=== PATIENT | male | born 1995 | race Caucasian/White ===

== ENCOUNTER 2020-11-15 16:51 | Emergency (ER) | payer BC, SELFPAY ==
[2020-11-15 17:01] VITALS: BP 134/77; PULSE 77; RESP 18; TEMP 36.8; O2SAT 98
[2020-11-15 17:08] VITALS: BP 134/77; PULSE 77; RESP 16; TEMP 36.8; O2SAT 98
--- NOTE | 2020-11-15 17:23 | HMH.EDUTC ---
[facility] – [place] Disposition Clinical Impression: Upper respiratory infection Qualifiers: URI type: unspecified URI Qualified Code(s): J06.9 - Acute upper respiratory infection, unspecified Disposition: Home, Self-Care Condition on Discharge: Good Instructions: Cough, DI for Cough -- Adult, DI for Sinusitis Additional Instructions: ? Start antibiotic today. Be sure to complete entire prescription even if feeling better Over the counter Cough medication like Robitussin or Delsym may help with cough ? Monitor temp. Tylenol every 4 hours as needed and / or ibuprofen every 6 hours as needed ( As long as your primary care physician has told you that it ok to take both. For fever/aches/pains ER if no less than 101 despite Tylenol or Motrin ? Humidifier/vaporizer or hot steamy shower *Warm salt water gargles may help to soothe the throat *Throat Lozenges *Warm fluids like tea with honey may help to soothe the throat *Sleep elevated *Humidifier/Vaporizer Your throat swab was sent for culture. Those results are typically sent to your primary care. Be sure to follow up in 2-3 days with your family doctor/primary care physician if no improvement so they can review those result and treat if necessary. If you don?t have a primary care doctor, I recommend you get one but in the mean time, you will have to return to a walk in clinic Follow up IMMEDIATELY for new or worsening symptoms or no Noticeable improvement over the next 48-72 hours. 911 for difficulty breathing or swallowing Follow up IMMEDIATELY for new or worsening of symptoms OR no noticeable improvement over the next 48-72 hours. 911 immediately for any life threatening symptoms such as chest pain or difficulty breathing Prescriptions: Fluticasone Propionate [Flonase 50mcg nasal spray 16gm] 1 spr NS DAILY #1 bottle Transmission Status: Pending to [email or web address] Azithromycin [Z-José 250mg Tab] 250 mg PO DIRECTED #6 tab Transmission Status: Pending to [email or web address] Referrals: Provider,Referral, [Primary Care Provider] - As needed Time of Disposition: 17:39 Medical Decision Making - Choco Inquiry Pt receiving controlled substance: No Choco was queried for this patient: No Vital Signs: 11/15/20 17:01 11/15/20 17:08 Temperature 98.3 F 98.3 F Temperature Source Oral Oral Pulse Rate [Left Radial] 77 77 Respiratory Rate 18 16 Blood Pressure [Left Arm] 134/77 134/77 Blood Pressure Mean [Left Arm] 96 96 Blood Pressure Source [Left Arm] Automatic Cuff Automatic Cuff Blood Pressure Position [Left Arm] Sitting Sitting 02 Sat by Pulse Oximetry 98 98 Oxygen Delivery Method Room Air - Lab Data Lab results reviewed: Yes: I reviewed the patient's lab results. Medical Decision Narrative: discussed chest xray and patient declined at this time [facility] – [place] HPI - General Stated complaint: cough Time Seen by Provider: 11/15/20 17:23 Mode of Arrival: Ambulatory Source of Information: Patient Limitations: No Limitations Description of Symptoms (Recalled from Triage Doc. by RN): pt states he started losing his voice sunday. Sunday he started getting worse and began having a productive cough with green sputum. HEENT Symptoms (Recalled from RN notes): No Resp Symptoms (Recalled from RN notes): Yes (productive cough with green sputum) Skin Symptoms (Recalled from RN notes): No MS Symptoms (Recalled from RN notes): No Functional Status (Recalled from RN notes): na - History of Present Illness Provider Complaint: Patient states that he started loosing his voice on Sunday and feeling like he was having some drainage in the back of his throat State that feels like his throat is sore and scratchy and at times he coughs up some mucous States that he feels like it is from the drainage in the back of his throat States that he took some over the counter medication and it made him feel sick so he stopped taking it States that today he was still having he scratchy sore throat, drainage a
[2020-11-15 17:52] LABS: UTC Strep Screen (Rapid) Negative (Negative)
[2020-11-15 18:00] VITALS: BP 000/00; PULSE 0; RESP 0; TEMP -17.7; TEMP 0
== END 2020-11-15 18:00 | disposition home or self-care (01) ==
PROVIDERS: Emergency Provider Nurse Practitioner
DX: J06.9 Acute upper respiratory infection, unspecified (principal)
CPT/HCPCS: 87880; 99202; G0463

== ENCOUNTER → 2021-07-07 18:08 | Outpatient (CLI) | payer BC, SELFPAY ==
[2021-07-07 18:11] VITALS: BMI 19.2
== END ==
PROVIDERS: Visit Provider Nurse Practitioner
DX: Z20.822 Contact with and (suspected) exposure to COVID-19 (principal)
CPT/HCPCS: C9803; U0003; U0005

== ENCOUNTER → 2022-11-09 08:43 | Outpatient (CLI) | payer BC, SELFPAY ==
--- NOTE | 2022-11-09 08:58 | MR_ITS ---
FINAL REPORT CLINICAL HISTORY: MIGRAINES. TINNITUS BILATERAL EARS. DIZZINESS AND BLURRED VISION. MEMORY LOSS. FINDINGS: Multi planar MR imaging was obtained through the brain without contrast. The midline structures appear intact. There is no evidence of Chiari malformation. On T2 and flair axial images the brain parenchyma is homogeneous. On diffusion-weighted images there is no evidence of restricted diffusion. The visualized paranasal sinuses demonstrate normal signal voids. The seventh and eighth nerve root complexes are intact. IMPRESSION: Essentially unremarkable nonenhanced brain MRI. Reviewed, Interpreted and Dictated by Milad Paulino MD Transcribed by Rhina Mcintyre Authenticated and . [facility]
== END ==
PROVIDERS: PCP Nurse Practitioner Family; Visit Provider Nurse Practitioner Family
DX: G43.909 Migraine, unspecified, not intractable, without status migrainosus (principal)
CPT/HCPCS: 70551

== ENCOUNTER → 2022-12-07 10:11 | Outpatient (CLI) | payer BC, SELFPAY ==
[2022-12-07 11:01] LABS: Basophils # 0.1 K/mm3 (0-0.2); Basophils % 0.5 % (0.1-2.0); Eosinophils # 0.1 K/mm3 (0.0-0.4); Eosinophils % 1.4 % (0.1-12.0); Hematocrit 52.8 % (42.0-52.0); Hemoglobin 17.4 g/dL (14.1-18.0); Lymphocytes # 3.3 K/mm3 (0.7-4.5); Lymphocytes % 32.4 % (10-50); Mean Corpuscular HGB Conc 32.9 g/dL (31.8-35.4); Mean Corpuscular Volume 88.1 fl (80-94); Mean Platelet Volume 7.5 fl (7.4-10.4); Monocytes # 0.7 K/mm3 (0.1-1.0); Monocytes % 6.4 % (1.7-9.3); Neutrophils # 6.1 K/mm3 (1.8-7.8); Neutrophils % 59.3 % (37.0-80.0); Platelet Count 288 K/mm3 (142-424); Red Blood Count 5.99 M/mm3 (4.60-6.20); Red Cell Distribution Width 12.5 % (11.5-17.5); White Blood Count 10.3 K/mm3 (4.8-10.8)
[2022-12-07 11:22] LABS: Alanine Aminotransferase 22 U/L (12-78); Albumin Level 5.2 g/dl (3.5-5.0); Albumin/Globulin Ratio 2.2 (1.1-1.8); Alkaline Phosphatase 53 U/L (38-126); Aspartate Amino Transferase 29 U/L (17-59); Bilirubin,Total 1.6 mg/dl (0.2-1.3); Blood Urea Nitrogen 17 mg/dl (9-20); Calcium 9.6 mg/dl (8.4-10.2); Carbon Dioxide 29 mmol/L (22.0-30.0); Chloride 99 mmol/L (98-107); Estimated Glomerular Filt Rate 82 ml/min (>60); GFR (African American) 99 ML/MIN (>60); Globulin 2.4 g/dL (1.3-3.2); Glucose 96 mg/dl (74-100); Sodium 140 mmol/L (136-145); Total Protein,Serum 7.6 g/dl (6.3-8.2)
[2022-12-07 11:27] LABS: C-Reactive Protein 1.2 mg/L (0-4)
[2022-12-07 12:08] LABS: Erythrocyte Sedimentation Rate 1 mm/hr (0-15)
[2022-12-07 12:28] LABS: Folate 5.34 ng/mL; Vitamin B12 728 pg/mL (239-931)
[2022-12-08 11:57] LABS: Rapid Plasma Reagin Ab Titer Non Reactive (NonRea<1:1)
== END ==
PROVIDERS: PCP Nurse Practitioner Family; Visit Provider Nurse Practitioner Family
DX: H57.02 Anisocoria (principal); R51.9 Headache, unspecified; Z79.899 Other long term (current) drug therapy
CPT/HCPCS: 36415; 80053; 82607; 82746; 84443; 85025; 85651; 86140; 86593

== ENCOUNTER → 2022-12-15 11:05 | Outpatient (CLI) | payer BC, SELFPAY ==
--- NOTE | 2022-12-15 11:05 | MR_ITS ---
FINAL REPORT CLINICAL HISTORY: eval for abnormal circulation, aneurysm FINDINGS: Multiple projection images of the brain arterial vasculature were obtained without contrast. The raw data images were also reviewed. The distal internal carotid, distal vertebral and basilar arteries have an unremarkable appearance without evidence of significant stenosis or occlusion. The proximal anterior, middle and posterior cerebral arteries have an unremarkable appearance. There is no evidence of significant stenosis or major branch occlusion. No aneurysm or vascular malformation is identified. IMPRESSION: Unremarkable MR angiogram of the head. Reviewed, Interpreted and Dictated by Jon Armas III, MD Transcribed by Julissa Reddy Authenticated and [facility]
== END ==
PROVIDERS: PCP Nurse Practitioner Family; Visit Provider Nurse Practitioner Family
DX: H57.02 Anisocoria (principal); R51.9 Headache, unspecified
CPT/HCPCS: 70544

== ENCOUNTER → 2022-12-28 14:00 | Outpatient (POV) | payer BC, SELFPAY | PROVIDERS: Visit Provider Specialist/Technologist | DX: Z00.00 Encounter for general adult medical examination without abnormal findings (principal) ==

== ENCOUNTER → 2023-01-04 13:10 | Outpatient (CLI) | payer BC, SELFPAY ==
--- NOTE | 2023-01-04 13:10 | US_ITS ---
FINAL REPORT CLINICAL HISTORY: TSH 10 COMPARISON: None FINDINGS: Thyroid ultrasound: The right lobe of the thyroid measures 4.4 x 1.2 x 1.7 cm in size. There is a small cystic nodule present in the right thyroid measuring 4 x 3 x 2.3 mm in size. No other masses are identified, and the echotexture of the thyroid is otherwise normal. The left lobe of the thyroid measures 3.6 x 1.2 x 1.4 cm in size. There is a small cystic nodule present in the left lobe, measuring 3 x 2.2 x 2.3 mm in size. No other masses are identified in the left lobe, and the echotexture of the thyroid is otherwise unremarkable. The isthmus is 1.5 mm in thickness and normal in appearance. IMPRESSION: Normal-sized thyroid gland. There are 2 cystic nodules present in either lobe, the largest measuring 4 mm in diameter, both TR category 1 nodules. No follow-up is required at this time. Reviewed, Interpreted and Dictated by Cristy Powell MD Transcribed by Camilla Lucas Authenticated and [facility]
== END ==
PROVIDERS: PCP Nurse Practitioner Family; Visit Provider Nurse Practitioner
DX: E03.9 Hypothyroidism, unspecified (principal)
CPT/HCPCS: 76536

== ENCOUNTER → 2023-04-18 08:56 | Outpatient (CLI) | payer BC, SELFPAY ==
[2023-04-18 10:10] LABS: Free T4 (Free Thyroxine) 1.06 ng/dl (0.78-2.19)
[2023-04-18 10:25] LABS: Thyroid Stimulating Hormone 3.66 uIU/mL (0.465-4.68)
== END ==
PROVIDERS: PCP Nurse Practitioner Family; Visit Provider Nurse Practitioner
DX: E03.9 Hypothyroidism, unspecified (principal)
CPT/HCPCS: 36415; 84439; 84443

== ENCOUNTER 2024-02-23 07:00 | Emergency (ER) | payer BC, SELFPAY ==
[2024-02-23 07:01] VITALS: BP 148/85; PULSE 78; RESP 13; TEMP 36.9; O2SAT 99; BMI 23.6
--- NOTE | 2024-02-23 07:20 | XR_ITS ---
PROCEDURE INFORMATION: Exam: XR Left Hand Exam date and time: 02/23/2024 7:22 AM Age: 28 years old Clinical indication: Injury or trauma; Other: hit on railing ; Laceration; Left; Index finger; Additional info: 1st mtp trauma TECHNIQUE: Imaging protocol: Radiologic exam of the left hand. Views: 3 or more views. COMPARISON: No relevant prior studies available. FINDINGS: Bones/joints: Minimally displaced fracture of the proximal aspect of the proximal phalanx of the long finger. This is an intra-articular fracture involving the long finger metacarpophalangeal joint. Soft tissues: Soft tissue swelling around the long finger metacarpal phalangeal joint IMPRESSION: Minimally displaced fracture of the proximal aspect of the proximal phalanx of the long finger. This is an intra-articular fracture involving the long finger metacarpophalangeal joint.
--- NOTE | 2024-02-23 07:21 | HMH.EDGENADL ---
Discharge Plan Disposition Patient Disposition: Home, Self-Care Chief Complaint: Wound/Laceration Prescriptions Prescriptions: No Action levothyroxine 50 mcg tablet 50 mcg PO DAILY Qty: 90 2RF Referrals Follow up/Referrals: Anurag Perales APRN [Primary Care Provider] - See instructions Activity Restrictions/Add. Instructions Additional Instructions/Restrictions: At this time it was felt you are safe to be discharged home. If new or worsening symptoms please do not hesitate to return the emergency department. Please do your best to not hit your wound again as it will open and this increases the chance of infection. Clinical Impressions Clinical Impression: Traumatic wound, Hand trauma Instructions Patient Instructions: DI for Laceration Repair Print Language Print Language: Filipino Discharge ED Provider: Carlos Damon General Adult HPI General Chief complaint: Wound/Laceration Stated complaint: laceration L hand Time Seen by Provider: 02/23/24 07:13 Mode of Arrival: Ambulatory Source of Information: Patient Limitations: No Limitations Description of Symptoms (Recalled from ER Triage Doc. by RN): pt presents to ED with c/o laceration to left index finger. pt reports that he dropped his water bottle, went to catch it and accidentaly cut his hand on a railing. History of Present Illness HPI narrative: Patient is a 28-year-old male with no pertinent past medical history presents emergency department for evaluation of left first MTP trauma. Patient was at work when he inadvertently hit the dorsal aspect of his first MTP which was oozing blood at approximately 1 AM this morning. Tdap is not up-to-date. No other acute complaints at this time. Related Data Previous Rx's ?Medication ?Instructions ?Recorded levothyroxine 50 mcg tablet 50 mcg PO DAILY hypothyroid #90 10/10/23 tabs Allergies Allergy/AdvReac Type Severity Reaction Status Date / Time No Known Allergies Allergy Verified 05/17/23 12:59 [facility] Disclaimer: The information contained in this section may have been updated after the patient was seen, as this information can be updated by other users. Medical History Headache Hypothyroidism Thyromegaly Tinnitus, bilateral Family History Other Alcoholism Social History Smoking Status: Never smoker alcohol intake: current alcohol intake frequency: a few times a month current occupational status: employed Travel in the last 8 weeks: None ROS Obtained: Yes Systems reviewed as appropriate & no additional complaints except as documented Physical Exam General General appearance: alert and in no apparent distress Head Head exam: atraumatic and normocephalic Eye Eye exam: Present PERRL and EOMI ENT ENT exam: Present mucous membranes moist Neck Neck exam: Present normal inspection Chest Chest inspection: Present normal inspection and symmetric chest wall rise Respiratory Respiratory exam: Absent respiratory distress Cardiovascular Cardiovascular exam: Present regular rate and normal rhythm Extremities Exam Extremities exam: Present other (Swelling over the dorsal aspect of the first left MTP joint, superficial abrasion over the dorsal aspect of the MTP joint that is hemostatic. No deep laceration. Distally neurovascularly intact left index finger. Full range of motion all joints of the left hand.); Absent normal inspection Neurological Exam Neurological exam: Present alert Psychiatric Psychiatric exam: Present normal affect Skin Skin exam: Present warm and dry Medical Decision Making Choco Inquiry Pt receiving controlled substance: No Vital Signs: 02/23/24 07:01 Temperature 98.5 F Temperature Source Oral Pulse Rate [Left Radial] 78 Respiratory Rate 13 Blood Pressure [Right Arm] 148/85 H Blood Pressure Mean [Right Arm] 106 02 Sat by Pulse Oximetry 99 Oxygen Delivery Method Room Air Orders (Tests/Meds): ED MEDICATIONS Discontinued Medications Generic Name Dose Route Start Last Admin Trade Name Freq PRN Reason Stop Dose Admin Tetanus/Reduced Diphtheria/Acell Pertussis 0.5 ml 02/23/24 07:23 02/23/24 07:39 Tet/Diphth/Pert-Adult 0.5ml Syringe IM 02/23/24 07:24 0.5 ml .ONCE ONE Administration ORDERS Category Date Time Status Hand XR left minimum 3 views [XR hand LT min 3V] Stat Exams 02/23/24 07:20 Taken Medical Decision Narrative: In summary patient is a 28-year-old male with past medical history described above who presents emergency department for evaluation of first MTP trauma on the left hand. Patient is hemodynamically stable nontoxic-appearing upon arrival, afebrile. There is swelling over his knuckle although he does have full range of motion makes fracture less likely. Fracture is on the differential so x-ray will be obtained. Tdap will be updated. Wound will be washed and glued and does not require suturing at this time. X-ray informally interpreted by me, no acute displaced fracture. Procedure: Procedure performed was wound care. Procedure performed by Carlos Damon and nursing staff. Wound was irrigated with sterile water and Hibiclens. It was not under tension therefore it was easily approximated and glued with success. Patient tolerated the procedure well. There were no immediate complications. Critical Care Critical Care Time Critical Care Time: No
--- NOTE | 2024-02-23 07:27 | PC.NURSE ---
RAD at BS
[2024-02-23] MEDS: TET/DIPHTH/PERT-ADULT 0.5ML SYRINGE 0.5 ML IM (07:39)
[2024-02-23 07:55] VITALS: BP 145/85; PULSE 78; RESP 13; TEMP 36.9
--- NOTE | 2024-02-23 15:39 | PC.NURSE ---
I attempted to call the pt to relay results on his xray. I was unable to reach him at this time.
--- NOTE | 2024-02-23 17:12 | PC.NURSE ---
I was able to reach the pt and explained the results of his xray. Per Dr. Damon I explained how to yuli tape his fingers and to follow up with Dr. Hall
== END 2024-02-23 07:55 | disposition home or self-care (01) ==
PROVIDERS: Emergency Provider Emergency Medicine; PCP Nurse Practitioner Family
DX: S61.211A Laceration without foreign body of left index finger without damage to nail, initial encounter (principal); W26.8XXA Contact with other sharp object(s), not elsewhere classified, initial encounter; Z23 Encounter for immunization
CPT/HCPCS: 10060; 73130; 90471; 90715; 99283

== ENCOUNTER 2024-07-07 11:13 | Outpatient (CLI) | payer BC, SELFPAY ==
[2024-07-07 13:43] LABS: Free T4 (Free Thyroxine) 1.05 ng/dl (0.78-2.19)
[2024-07-07 13:52] LABS: Thyroid Stimulating Hormone 3.55 uIU/mL (0.465-4.68)
== END 2024-07-07 23:59 | disposition home or self-care (01) ==
PROVIDERS: PCP Nurse Practitioner Family; Visit Provider Nurse Practitioner
DX: E03.9 Hypothyroidism, unspecified (principal); R79.89 Other specified abnormal findings of blood chemistry
CPT/HCPCS: 36415; 84439; 84443

== ENCOUNTER 2024-11-06 14:09 | Outpatient (CLI) | payer OTHER, BC, SELFPAY ==
--- NOTE | 2024-11-06 14:13 | XR_ITS ---
FINAL REPORT CLINICAL HISTORY: Back pain COMPARISON: None FINDINGS: 3 views of the lumbar spine were obtained. There is no evidence of fracture. There is no malalignment. There is indentation of the anterior superior endplate of L4. The disc spaces are preserved. No paraspinous soft tissue abnormalities identified. IMPRESSION: Indentation anterior superior endplate of L4 favored to be developmental rather than due to trauma. Correlate clinically. Reviewed, Interpreted and Dictated by Milad Paulino MD Transcribed by Rena Luna Authenticated and [facility]
--- NOTE | 2024-11-06 14:13 | XR_ITS ---
FINAL REPORT CLINICAL HISTORY: Back pain COMPARISON: None FINDINGS: SINGLE VIEW PELVIS: A single view of the pelvis was obtained. There is no acute fracture or dislocation. Vizualized joint spaces are normally aligned. Soft tissues are unremarkable. IMPRESSION: No acute bony abnormality. Reviewed, Interpreted and Dictated by Milad Paulino MD Transcribed by Rena Luna Authenticated and [facility]
== END 2024-11-06 23:59 | disposition home or self-care (01) ==
LOC: RAD 14:12
PROVIDERS: PCP Nurse Practitioner Family; Visit Provider Internal Medicine
DX: M48.8X6 Other specified spondylopathies, lumbar region (principal)
CPT/HCPCS: 72100; 72170